=== PATIENT | male | born 1955 | race Caucasian/White ===

== ENCOUNTER 2021-02-09 08:00 | Outpatient (CLI) | payer MEDICAID ==
[~2021-02-09 08:00] MED LIST: NONE PER PT
[2021-02-09] MEDS ORDERED: HYDR-2214 PO (13:56)
== END 2021-02-09 23:59 | disposition home or self-care (01) ==
LOC: ROC 08:00
PROVIDERS: ATTEND Radiology Radiation Oncology
DX: C15.5 Malignant neoplasm of lower third of esophagus (principal); Z79.899 Other long term (current) drug therapy
CPT/HCPCS: 99214; G0463

== ENCOUNTER 2021-02-13 13:18 | Day surgery (SDC) | payer MEDICAID ==
[~2021-02-13] VITALS: Ht 177.8 cm; Wt 66.2 kg
[~2021-02-13 13:18] MED LIST changes: +HYDR-2214 PO
[2021-02-13] MEDS ORDERED: HYDROCODONE PO (13:56)
[2021-02-13 13:58] VITALS: BP 123/77
[2021-02-13] MEDS ORDERED: CHLORHEXIDINE 15 ML UDC PO ONE (14:00)
[2021-02-13] MEDS ORDERED: LACTATED RINGERS 1,000 ML IV SCH (14:00)
[2021-02-13] MEDS ORDERED: PLEASE ENTER HEIGHT AND WEIGHT MC SCH (14:30)
[2021-02-13] MEDS ORDERED: BUPIVACAINE/PF 0.5% ONE (14:53)
[2021-02-13] MEDS ORDERED: EPINEPHRINE 1 MG/ML, 1ML ONE (14:53)
[2021-02-13] MEDS ORDERED: HEPARIN 1,000 UNITS/ML, 10ML ONE (14:53)
[2021-02-13] MEDS ORDERED: FENTANYL PF 250 MCG/5ML ONE (15:39)
[2021-02-13] MEDS ORDERED: MIDAZOLAM 1 MG/ML, 2ML ONE (15:39)
[2021-02-13] MEDS ORDERED: VISIPAQUE 270 MG/ML, 50ML BOTTLE ONE (15:45)
[2021-02-13] MEDS ORDERED: DEXAMETHASONE 4 MG/ML, 1ML ONE (15:54)
[2021-02-13] MEDS ORDERED: PHENYLEPHRINE 10 MG/ML ONE (15:54)
[2021-02-13] MEDS ORDERED: FENTANYL PF 100 MCG/2ML IV PRN (16:00)
[2021-02-13] MEDS ORDERED: PROMETHAZINE 25 MG/ML, 1ML IVPush PRN (16:00)
[2021-02-13] MEDS ORDERED: hydrALAzine 20 MG/ML, 1ML IV PRN (16:00)
[2021-02-13] MEDS ORDERED: MEPERIDINE/PF 25MG/0.5ML IVPush PRN (16:00)
[2021-02-13] MEDS ORDERED: OXYcodone 5 MG/5 ML ORAL.SOL UDC PO PRN (16:00)
[2021-02-13] MEDS ORDERED: HALOPERIDOL 5 MG/ML IV PRN (16:00)
[2021-02-13] MEDS ORDERED: HYDROmorphone 1 MG/ML, 1ML INJ IVPush PRN (16:00)
[2021-02-13] MEDS ORDERED: DIPHENHYDRAMINE 50 MG/ML, 1ML IVPush PRN (16:00)
[2021-02-13] MEDS ORDERED: LABETALOL 5MG/ML, 20ML IV PRN (16:00)
[2021-02-13] MEDS ORDERED: ROCURONIUM 10MG/ML,5ML ONE (16:50)
[2021-02-13] MEDS ORDERED: PROPOFOL 10 MG/ML, 20ML ONE (16:50)
[2021-02-13] MEDS ORDERED: ONDANSETRON 2MG/ML, 2ML ONE (16:50)
[2021-02-13] MEDS ORDERED: SUCCINYLCHOLINE 20 MG/ML, 10ML ONE (16:50)
[2021-02-13] MEDS ORDERED: CEFAZOLIN 1,000 MG ONE (16:50)
[2021-02-13] MEDS ORDERED: GLYCOPYRROLATE 0.2MG/1ML, 5ML ONE (16:50)
[2021-02-13] MEDS ORDERED: NEOSTIGMINE 1 MG/ML, 10ML ONE (16:50)
[2021-02-13] MEDS ORDERED: IBUP100O26 JT (17:06)
[2021-02-13] MEDS ORDERED: ibuprofen (17:06)
== END 2021-02-13 19:10 | disposition home or self-care (01) ==
LOC: OR 13:18
PROVIDERS: ATTEND Surgery
DX: C15.9 Malignant neoplasm of esophagus, unspecified (principal); C78.6 Secondary malignant neoplasm of retroperitoneum and peritoneum; G47.30 Sleep apnea, unspecified; Z20.822 Contact with and (suspected) exposure to COVID-19; Z79.899 Other long term (current) drug therapy
CPT/HCPCS: 36561; 44186; 49321; 71045; 77001; 87635; 88305; 93005; B4087; C1788; J0171; J0330; J0690; J1100; J1644; J2250; J2370; J2405; J2704; J2710; J3010; J7120; Q9966

== ENCOUNTER → 2021-02-15 | Outpatient (CLI) | payer MEDICAID ==
[~2021-02-15] MED LIST changes: +HYDROCODONE PO; +IBUP100O26 JT; +ibuprofen
== END | disposition home or self-care (01) ==
LOC: PETCFH 07:31
PROVIDERS: ATTEND Surgery
DX: C15.5 Malignant neoplasm of lower third of esophagus (principal); R13.10 Dysphagia, unspecified; J90 Pleural effusion, not elsewhere classified; R59.1 Generalized enlarged lymph nodes
CPT/HCPCS: 78815; A9552

== ENCOUNTER 2021-03-03 00:56 | Inpatient (IN) | payer MEDICAID ==
[2021-03-03] VITALS (11 sets, daily range): BP systolic 118–146; BP diastolic 58–85
[~2021-03-03] VITALS: Ht 167.6 cm; Wt 65.0 kg
[2021-03-03] MEDS ORDERED: SODIUM CHLORIDE 0.9% 1,000ML IVBOLUS ONE ×3 (01:00→03:30)
[2021-03-03] MEDS ORDERED: SODIUM CHLORIDE FLUSH 10ML SYR IVF ONE (01:00)
--- NOTE | 2021-03-03 01:07 | NUR ---
BREAK RN: PT MUKUND. PER EMS PT HAS THROAT CA WITH METS DIAGNOSED 2 MO AGO. PT COMPLAINING OF SOB. PER EMS PT WAS LOW 80% ON ROOM AIR, PT NOW ON 10L NRB AND 02 SAT AT 100%. PT STATING "I NEED MORE AIR". PT RESTIN IN R[place]YOTE, MONITORING IN PLACE, EKG DONE UPON ARRIVAL, PIV PLACED BY EMS, EDMD AT BEDSIDE UPON ARRIVAL FOR EVAL, WCTM.
--- NOTE | 2021-03-03 01:17 | NUR ---
BREAK RN: LAB AT BEDSIDE FOR BLOOD DRAW.
[2021-03-03 01:33] LABS: MEAN CORPUSCULAR HEMOGLOBIN 28.7 pg (27.5-34.5); MEAN CORPUSCULAR HGB CONC 30.1 g/dL (33.2-36.2); MEAN PLATELET VOLUME 7.8 fL (7.4-10.4); PLATELET COUNT 211 x10^3/uL (130-400); RED BLOOD COUNT 1.93 x10^6/uL (4.38-5.82); RED CELL DISTRIBUTION WIDTH 19.1 % (9.4-14.8)
--- NOTE | 2021-03-03 01:34 | NUR ---
BREAK RN: REPORT TO PRIMARY RNYAIR.
--- NOTE | 2021-03-03 01:39 | NUR ---
PT RESTING, INSISITS THAT I TURN LIGHTS OFF. PT REQUESTING TO GO HOME. PT VERY DIFFICULT TO OBTAIN O2 SAT READING ON. OXIMASK O2 @ 4L APPLIED
[2021-03-03 01:45] LABS: ALBUMIN 2.3 g/dL (3.4-5.0); ANION GAP 21 mmol/L (5-15); CALCIUM 8.1 mg/dL (8.5-10.1); CHLORIDE 104 mmol/L (98-107)
[2021-03-03 01:50] LABS: ALANINE AMINOTRANSFERASE 45 U/L (12-78); ALKALINE PHOSPHATASE 368 U/L (45-117); BILIRUBIN,TOTAL 1.2 mg/dL (0.2-1.0); CREATININE 1.58 mg/dL (0.7-1.3); TOTAL PROTEIN 5.7 g/dL (6.4-8.2); TROPONIN I < 0.015 ng/mL (0.000-0.045)
[2021-03-03 01:57] LABS: ANISOCYTOSIS 1+; BAND#(MANUAL) 1.12 x10^3/uL; BANDS%(MANUAL) 5 % (0-7); LYMPH#(MANUAL) 8.06 x10^3/uL (1-3.4); LYMPHS% (MANUAL) 36 % (22-44); METAMYELOCYTES# (MANUAL) 0.45 x10^3/uL (0-0); METAMYELOCYTES% (MANUAL) 2 % (0-1); MONOS#(MANUAL) 0.67 x10^3/uL (0.3-2.7); MONOS% (MANUAL) 3 % (2-9); MYELOCYTES# (MANUAL) 0.45 x10^3/uL (0-0); MYELOCYTES% (MANUAL) 2 % (0-0); SEG#(MANUAL) 11.65 x10^3/uL (1.8-6.8); SEGS% (MANUAL) 52 % (42-75)
[2021-03-03 01:58] LABS: MICROCYTOSIS 1+; POLYCHROMASIA 1+
[2021-03-03 01:59] LABS: <PLATELET ESTIMATE> ADEQUATE; SCHISTOCYTES 1+
[2021-03-03 02:00] LABS: <PLT MORPHOLOGY> NORMAL PLT MORPH; OVALOCYTES 1+
[2021-03-03] MEDS ORDERED: PANTOPRAZOLE 80 MG in SODIUM CHLORIDE 0.9% 100 ML IV SCH (02:00)
[2021-03-03] MEDS ORDERED: CEFTRIAXONE 1,000 MG in DEXTROSE 5% 50 ML IVPB ONE (02:00)
[2021-03-03] MEDS ORDERED: ONDANSETRON 2MG/ML, 2ML IVPush ONE (02:00)
[2021-03-03] MEDS ORDERED: AZITHROMYCIN 500 MG in SODIUM CHLORIDE 0.9% 250 ML IVPB ONE (02:00)
[2021-03-03] MEDS ORDERED: PANTOPRAZOLE 40 MG IV IVPush ONE (02:00)
[2021-03-03] MEDS ORDERED: PANTOPRAZOLE 40 MG IV ONE (02:10)
[2021-03-03] MEDS ORDERED: ONDANSETRON 2MG/ML, 2ML ONE ×2 (02:10→05:22)
--- NOTE | 2021-03-03 02:17 | NUR ---
PT FAMILY UPDATED ON POC. PT DENING PAIN. PREPARING FOR CENTRAL LINE.
--- NOTE | 2021-03-03 02:30 | NUR ---
PT AWARE OF NPO STATUS. PT NOT HAPPY ABOUT IT BUT RELUCTANTLY AGREES. PT PROVIDED LEMON SWABS FOR COMFORT
[2021-03-03 02:42] LABS: INTERNATIONAL NORMALIZED RATIO 2.6 (0.93-1.1)
[2021-03-03 02:48] LABS: PROTHROMBIN TIME 26.6 Seconds (9.6-11.5)
--- NOTE | 2021-03-03 02:58 | NUR ---
DR ADAMSON PLACED RIGHT FEMORAL CENTRAL LINE D/T PT HAD PLACEMENT OF A RIGHT PORT CENTRAL LINE ONE WEEK AGO FOR CHEMO. BLOOD SLIP TUBED TO LAB.
--- NOTE | 2021-03-03 03:18 | NUR ---
2 RN VERIFIED BLOOD TRANSFUSION
[2021-03-03] MEDS ORDERED: MORPHINE SULFATE 4 MG/ML, 1ML ONE (04:05)
[2021-03-03] MEDS ORDERED: MICROFIBRILLAR COLLAGEN 1 GM TP ONE ×2 (04:09→04:30)
[2021-03-03] MEDS: PIPERACILLIN/TAZO 3.375 GM in DEXTROSE 5% 50 ML IV SCH ×4 (04:30→22:57)
[2021-03-03] MEDS ORDERED: PHARMACY MAY ADJ FOR RENAL FX MC PRN (04:30)
[2021-03-03] MEDS ORDERED: AZITHROMYCIN 500 MG in SODIUM CHLORIDE 0.9% 250 ML IV SCH (04:30)
[2021-03-03] MEDS ORDERED: PHYTONADIONE 10 MG/ML, 1ML SQ ONE (04:30)
[2021-03-03] MEDS ORDERED: THIAMINE 200 MG in SODIUM CHLORIDE 0.9% 50 ML IV ONE (04:30)
[2021-03-03] MEDS ORDERED: OCTREOTIDE 500 MCG in SODIUM CHLORIDE 0.9% 99 ML IV SCH (04:30)
[2021-03-03] MEDS ORDERED: LACTATED RINGERS 1,000 ML IV SCH (04:30)
[2021-03-03] MEDS ORDERED: ONDANSETRON 2MG/ML, 2ML IV PRN (04:30)
[2021-03-03] MEDS ORDERED: OCTREOTIDE 50 MCG/ML, 1ML (0.05MG/ML) IV ONE (04:30)
[2021-03-03] MEDS ORDERED: morphine SULFATE 10 MG/ML, 1ML IVPush ONE (04:30)
--- NOTE | 2021-03-03 05:38 | NUR ---
report to mar ojeda
[2021-03-03] MEDS: PANTOPRAZOLE 80 MG in SODIUM CHLORIDE 0.9% 100 ML IV SCH ×2 (05:47→14:26)
[2021-03-03] MEDS: HYDROmorphone 2 MG/ML, 1ML IVPush PRN ×2 (05:58→20:59)
[2021-03-03] MEDS: SODIUM BICARBONATE 8.4% 150 MEQ in DEXTROSE 5% 1,000 ML IV SCH ×2 (07:34→23:21)
[2021-03-03] MEDS ORDERED: PHYTONADIONE 10 MG/ML, 1ML SQ SCH (09:00)
[2021-03-03 09:46] LABS: MICROSCOPIC INDICATED
--- NOTE | 2021-03-03 13:47 | NUR ---
Tube Feed:Osmolite 1.2 First goal until 03/06: 35 ml/hr. If electrolytes stable 03/05:(phosphorous.magnesium),can advance to 45 ml/hr (final goal) Please advance slowly,pt at high refeeding risk.monitor electrolytes daily Addendum: 03/03/21 at [address] Amended: Links added.
[2021-03-03 14:30] LABS: ANION GAP 7 mmol/L (5-15); CALCIUM 7.2 mg/dL (8.5-10.1); CHLORIDE 109 mmol/L (98-107); CREATININE 1.27 mg/dL (0.7-1.3)
[2021-03-03] MEDS ORDERED: THIAMINE 100 MG in SODIUM CHLORIDE 0.9% 100 ML IV SCH (14:30)
[2021-03-04 00:37] VITALS: BP 94/63
[2021-03-04] MEDS: PANTOPRAZOLE 80 MG in SODIUM CHLORIDE 0.9% 100 ML IV SCH ×3 (00:41→16:01)
[2021-03-04 04:13] LABS: ALBUMIN 2.2 g/dL (3.4-5.0); ANION GAP 7 mmol/L (5-15); CALCIUM 7.4 mg/dL (8.5-10.1); CHLORIDE 107 mmol/L (98-107)
[2021-03-04 04:16] LABS: ALANINE AMINOTRANSFERASE 47 U/L (12-78); ALKALINE PHOSPHATASE 332 U/L (45-117); BILIRUBIN,TOTAL 1.7 mg/dL (0.2-1.0); CREATININE 1.34 mg/dL (0.7-1.3); TOTAL PROTEIN 5.3 g/dL (6.4-8.2)
[2021-03-04 04:23] LABS: MEAN CORPUSCULAR HEMOGLOBIN 28.8 pg (27.5-34.5); MEAN CORPUSCULAR HGB CONC 33.4 g/dL (33.2-36.2); MEAN PLATELET VOLUME 7.7 fL (7.4-10.4); PLATELET COUNT 144 x10^3/uL (130-400); RED BLOOD COUNT 2.77 x10^6/uL (4.38-5.82); RED CELL DISTRIBUTION WIDTH 16.5 % (9.4-14.8)
[2021-03-04 04:51] LABS: BANDS%(MANUAL) 10 % (0-7); EOS#(MANUAL) 0.14 x10^3/uL (0.0-0.4); EOS% (MANUAL) 1 % (1-7); LYMPH#(MANUAL) 3.08 x10^3/uL (1-3.4); LYMPHS% (MANUAL) 22 % (22-44); METAMYELOCYTES# (MANUAL) 0.98 x10^3/uL (0-0); METAMYELOCYTES% (MANUAL) 7 % (0-1); MONOS% (MANUAL) 5 % (2-9); SEGS% (MANUAL) 55 % (42-75)
[2021-03-04 04:52] LABS: ANISOCYTOSIS 2+; MICROCYTOSIS 1+; OVALOCYTES 1+; POLYCHROMASIA 1+
[2021-03-04 04:53] LABS: <PLATELET ESTIMATE> ADEQUATE; <PLT MORPHOLOGY> NORMAL PLT MORPH
[2021-03-04] MEDS: PIPERACILLIN/TAZO 3.375 GM in DEXTROSE 5% 50 ML IV SCH ×4 (04:56→23:22)
[2021-03-04] MEDS: HYDROmorphone 2 MG/ML, 1ML IVPush PRN ×2 (05:13→10:58)
[2021-03-04 07:33] VITALS: BP 110/67
[2021-03-04] MEDS: PHYTONADIONE 5 MG TABLET JT SCH (12:25)
[2021-03-04 12:28] VITALS: BP 108/64
[2021-03-04] MEDS: SODIUM CHLORIDE 0.9% 1,000 ML IV SCH (16:08)
[2021-03-04] MEDS: PANTOPRAZOLE 40 MG IV IVPush SCH (18:09)
[2021-03-04 22:00] VITALS: BP 97/65
[2021-03-04] MEDS: THIAMINE 100 MG in SODIUM CHLORIDE 0.9% 100 ML IV SCH (22:02)
[2021-03-05 00:19] VITALS: BP 102/64
[2021-03-05 02:32] LABS: MEAN CORPUSCULAR HEMOGLOBIN 29.3 pg (27.5-34.5); MEAN CORPUSCULAR HGB CONC 32.9 g/dL (33.2-36.2); MEAN PLATELET VOLUME 7.7 fL (7.4-10.4); PLATELET COUNT 134 x10^3/uL (130-400); RED BLOOD COUNT 2.47 x10^6/uL (4.38-5.82); RED CELL DISTRIBUTION WIDTH 16.6 % (9.4-14.8)
[2021-03-05 03:05] LABS: ANISOCYTOSIS 2+; BAND#(MANUAL) 0.82 x10^3/uL; BANDS%(MANUAL) 5 % (0-7); LYMPH#(MANUAL) 2.46 x10^3/uL (1-3.4); LYMPHS% (MANUAL) 15 % (22-44); METAMYELOCYTES# (MANUAL) 0.33 x10^3/uL (0-0); METAMYELOCYTES% (MANUAL) 2 % (0-1); MICROCYTOSIS 1+; MONOS#(MANUAL) 0.82 x10^3/uL (0.3-2.7); MONOS% (MANUAL) 5 % (2-9); MYELOCYTES# (MANUAL) 0.33 x10^3/uL (0-0); MYELOCYTES% (MANUAL) 2 % (0-0); OVALOCYTES 1+; POLYCHROMASIA 1+; SEG#(MANUAL) 11.64 x10^3/uL (1.8-6.8); SEGS% (MANUAL) 71 % (42-75)
[2021-03-05 03:06] LABS: <PLATELET ESTIMATE> ADEQUATE; <PLT MORPHOLOGY> NORMAL PLT MORPH
[2021-03-05] MEDS: PIPERACILLIN/TAZO 3.375 GM in DEXTROSE 5% 50 ML IV SCH ×4 (04:36→23:09)
[2021-03-05] MEDS: SODIUM CHLORIDE 0.9% 1,000 ML IV SCH ×2 (04:36→23:10)
[2021-03-05] MEDS: PANTOPRAZOLE 40 MG IV IVPush SCH ×2 (05:18→17:00)
[2021-03-05] MEDS: HYDROmorphone 2 MG/ML, 1ML IVPush PRN (05:19)
[2021-03-05 05:43] LABS: INTERNATIONAL NORMALIZED RATIO 1.32 (0.93-1.1); PROTHROMBIN TIME 13.9 Seconds (9.6-11.5)
[2021-03-05 05:46] LABS: ALANINE AMINOTRANSFERASE 46 U/L (12-78); ANION GAP 8 mmol/L (5-15); CALCIUM 7.2 mg/dL (8.5-10.1); CHLORIDE 107 mmol/L (98-107); CREATININE 1.45 mg/dL (0.7-1.3)
[2021-03-05 05:50] LABS: ALKALINE PHOSPHATASE 384 U/L (45-117); BILIRUBIN,TOTAL 2.1 mg/dL (0.2-1.0); TOTAL PROTEIN 5.1 g/dL (6.4-8.2)
[2021-03-05 06:57] VITALS: BP 98/67
[2021-03-05] MEDS: PHYTONADIONE 5 MG TABLET JT SCH (09:25)
[2021-03-05] MEDS: THIAMINE 100 MG in SODIUM CHLORIDE 0.9% 100 ML IV SCH ×2 (09:25→21:27)
[2021-03-05] MEDS: POTASSIUM CHLORIDE 20 MEQ PACKET PEG SCH ×2 (09:26→21:27)
[2021-03-05] MEDS ORDERED: FUROSEMIDE 20 MG/2 ML IV ONE (13:30)
[2021-03-05 13:33] VITALS: BP 106/65
[2021-03-05 20:13] VITALS: BP 102/53
[2021-03-06 02:28] LABS: MEAN CORPUSCULAR HGB CONC 32.7 g/dL (33.2-36.2); MEAN PLATELET VOLUME 7.7 fL (7.4-10.4); PLATELET COUNT 152 x10^3/uL (130-400); RED BLOOD COUNT 2.56 x10^6/uL (4.38-5.82); RED CELL DISTRIBUTION WIDTH 17.7 % (9.4-14.8)
[2021-03-06 02:36] LABS: ALANINE AMINOTRANSFERASE 46 U/L (12-78); ANION GAP 4 mmol/L (5-15); CALCIUM 7.4 mg/dL (8.5-10.1); CHLORIDE 109 mmol/L (98-107); CREATININE 1.17 mg/dL (0.7-1.3)
[2021-03-06 02:40] LABS: ALKALINE PHOSPHATASE 437 U/L (45-117); BILIRUBIN,TOTAL 2.9 mg/dL (0.2-1.0)
[2021-03-06 03:10] LABS: BAND#(MANUAL) 1.17 x10^3/uL; BANDS%(MANUAL) 9 % (0-7); LYMPH#(MANUAL) 1.69 x10^3/uL (1-3.4); LYMPHS% (MANUAL) 13 % (22-44); METAMYELOCYTES# (MANUAL) 0.26 x10^3/uL (0-0); METAMYELOCYTES% (MANUAL) 2 % (0-1); MONOS#(MANUAL) 0.65 x10^3/uL (0.3-2.7); MONOS% (MANUAL) 5 % (2-9); MYELOCYTES# (MANUAL) 0.26 x10^3/uL (0-0); MYELOCYTES% (MANUAL) 2 % (0-0); SEG#(MANUAL) 8.97 x10^3/uL (1.8-6.8); SEGS% (MANUAL) 69 % (42-75)
[2021-03-06 03:11] LABS: ANISOCYTOSIS 2+; MICROCYTOSIS 1+; OVALOCYTES 1+; POLYCHROMASIA 1+
[2021-03-06 03:12] LABS: <PLATELET ESTIMATE> ADEQUATE; <PLT MORPHOLOGY> NORMAL PLT MORPH
[2021-03-06] MEDS: PANTOPRAZOLE 40 MG IV IVPush SCH ×2 (05:14→16:39)
[2021-03-06] MEDS: PIPERACILLIN/TAZO 3.375 GM in DEXTROSE 5% 50 ML IV SCH ×4 (05:14→22:27)
[2021-03-06 06:50] VITALS: BP 88/50
[2021-03-06] MEDS: POTASSIUM CHLORIDE 20 MEQ PACKET JT SCH ×2 (07:30→10:48)
[2021-03-06] MEDS: PHYTONADIONE 5 MG TABLET JT SCH (09:00)
[2021-03-06] MEDS: THIAMINE 100 MG in SODIUM CHLORIDE 0.9% 100 ML IV SCH ×2 (09:00→21:31)
[2021-03-06] MEDS: POTASSIUM CHLORIDE 40 MEQ in SODIUM CHLORIDE 0.9% 1,000 ML IV SCH (16:39)
[2021-03-06 19:05] VITALS: BP 103/67
[2021-03-07] MEDS: PIPERACILLIN/TAZO 3.375 GM in DEXTROSE 5% 50 ML IV SCH ×4 (04:54→23:20)
[2021-03-07] MEDS: PANTOPRAZOLE 40 MG IV IVPush SCH ×2 (04:54→17:02)
[2021-03-07 05:09] LABS: MEAN CORPUSCULAR HGB CONC 32.6 g/dL (33.2-36.2); MEAN PLATELET VOLUME 7.7 fL (7.4-10.4); PLATELET COUNT 152 x10^3/uL (130-400); RED BLOOD COUNT 2.58 x10^6/uL (4.38-5.82); RED CELL DISTRIBUTION WIDTH 18.5 % (9.4-14.8)
[2021-03-07 05:19] LABS: ANION GAP 5 mmol/L (5-15); CALCIUM 7.5 mg/dL (8.5-10.1); CHLORIDE 112 mmol/L (98-107); CREATININE 0.86 mg/dL (0.7-1.3)
[2021-03-07 05:59] LABS: <PLATELET ESTIMATE> ADEQUATE; <PLT MORPHOLOGY> NORMAL PLT MORPH; ANISOCYTOSIS 2+; BAND#(MANUAL) 0.11 x10^3/uL; BANDS%(MANUAL) 1 % (0-7); EOS#(MANUAL) 0.11 x10^3/uL (0.0-0.4); EOS% (MANUAL) 1 % (1-7); LYMPH#(MANUAL) 1.43 x10^3/uL (1-3.4); LYMPHS% (MANUAL) 13 % (22-44); METAMYELOCYTES# (MANUAL) 0.55 x10^3/uL (0-0); METAMYELOCYTES% (MANUAL) 5 % (0-1); MICROCYTOSIS 1+; MONOS#(MANUAL) 0.66 x10^3/uL (0.3-2.7); MONOS% (MANUAL) 6 % (2-9); MYELOCYTES# (MANUAL) 0.22 x10^3/uL (0-0); MYELOCYTES% (MANUAL) 2 % (0-0); OVALOCYTES 1+; POLYCHROMASIA 1+; SEG#(MANUAL) 7.92 x10^3/uL (1.8-6.8); SEGS% (MANUAL) 72 % (42-75)
[2021-03-07 07:11] VITALS: BP 100/62
[2021-03-07] MEDS: THIAMINE 100 MG in SODIUM CHLORIDE 0.9% 100 ML IV SCH ×2 (09:02→23:19)
[2021-03-07] MEDS: POTASSIUM CHLORIDE 40 MEQ in SODIUM CHLORIDE 0.9% 1,000 ML IV SCH (09:02)
[2021-03-07] MEDS: POTASSIUM CHLORIDE 20 MEQ PACKET JT SCH ×2 (11:41→23:20)
[2021-03-07 13:13] VITALS: BP 97/66
[2021-03-07 18:51] VITALS: BP 139/82
[2021-03-07] MEDS: HYDROmorphone 2 MG/ML, 1ML IVPush PRN (20:25)
[2021-03-07] MEDS ORDERED: HALOPERIDOL 5 MG TABLET PO PRN (21:00)
[2021-03-07] MEDS ORDERED: HALOPERIDOL 2 MG/ML ORAL SOL PO PRN (22:00)
[2021-03-08] MEDS: HYDROmorphone 2 MG/ML, 1ML IVPush PRN (00:05)
== END 2021-03-07 23:30 | disposition expired | DRG 871 ==
LOC: ED 01:26 → EDIP 02:45 → CCU 05:29 → 4WST 18:20
PROVIDERS: ADMIT Family Medicine; ATTEND Internal Medicine
PROC: 30233K1 Transfusion of Nonautologous Frozen Plasma into Peripheral Vein, Percutaneous Approach (ICD-10-PCS; principal; 2021-03-03)
PROC: 30233N1 Transfusion of Nonautologous Red Blood Cells into Peripheral Vein, Percutaneous Approach (ICD-10-PCS; 2021-03-03)
PROC: 02HV33Z Insertion of Infusion Device into Superior Vena Cava, Percutaneous Approach (ICD-10-PCS; 2021-03-03)
PROC: B548ZZA Ultrasonography of Superior Vena Cava, Guidance (ICD-10-PCS; 2021-03-03)
PROC: 5A0935A Assistance with Respiratory Ventilation, Less than 24 Consecutive Hours, High Flow/Velocity Cannula (ICD-10-PCS; 2021-03-07)
DX: A41.9 Sepsis, unspecified organism (principal); E43 Unspecified severe protein-calorie malnutrition; J15.9 Unspecified bacterial pneumonia; J96.01 Acute respiratory failure with hypoxia; N17.0 Acute kidney failure with tubular necrosis; C15.9 Malignant neoplasm of esophagus, unspecified; C77.9 Secondary and unspecified malignant neoplasm of lymph node, unspecified; C79.51 Secondary malignant neoplasm of bone; D62 Acute posthemorrhagic anemia; D68.4 Acquired coagulation factor deficiency; E87.2 Acidosis; J90 Pleural effusion, not elsewhere classified; K92.0 Hematemesis; E87.3 Alkalosis; E88.09 Other disorders of plasma-protein metabolism, not elsewhere classified; Z66 Do not resuscitate; Z51.5 Encounter for palliative care; E27.8 Other specified disorders of adrenal gland; F10.10 Alcohol abuse, uncomplicated; F15.90 Other stimulant use, unspecified, uncomplicated; G89.29 Other chronic pain; R59.0 Localized enlarged lymph nodes; Y90.9 Presence of alcohol in blood, level not specified; R73.9 Hyperglycemia, unspecified; R74.8 Abnormal levels of other serum enzymes; F17.200 Nicotine dependence, unspecified, uncomplicated; F19.10 Other psychoactive substance abuse, uncomplicated; K70.10 Alcoholic hepatitis without ascites; R65.20 Severe sepsis without septic shock; Z80.0 Family history of malignant neoplasm of digestive organs; Z85.01 Personal history of malignant neoplasm of esophagus; Z85.819 Personal history of malignant neoplasm of unspecified site of lip, oral cavity, and pharynx; Z93.4 Other artificial openings of gastrointestinal tract status; Z68.23 Body mass index [BMI] 23.0-23.9, adult; Z79.899 Other long term (current) drug therapy
CPT/HCPCS: 36415; 36430; 36556; 36600; 71045; 74176; 80048; 80053; 81001; 82803; 82962; 83036; 83605; 83735; 83880; 84100; 84145; 84484; 85014; 85018; 85025; 85610; 85730; 86850; 86900; 86923; 87040; 87081; 93005; 96365; 96375; G0378; J0456; J0696; J1170; J2354; J2405; J2543; J3411; J3430; J3480; J7070; C9113; J1940; J2270; J7030; J7050; P9016; P9017